=== PATIENT | male | born 1970 | race Caucasian/White ===

== ENCOUNTER 2017-10-26 05:37 | Emergency (ER) | payer MEDICARE, MEDICAID ==
[~2017-10-26] VITALS: Ht 180.3 cm; Wt 72.0 kg
[2017-10-26 07:39] LABS: BASOPHILS % (AUTO) 0.4 % (0-1); EOSINOPHILS # (AUTO) 0.2 X10'3 (0-0.9); EOSINOPHILS % (AUTO) 2.8 % (0-6); HEMATOCRIT 41.5 % (42.0-52.0); HEMOGLOBIN 14.3 g/dl (14.0-17.9); LYMPHOCYTES # (AUTO) 2.3 X10'3 (1.1-4.8); LYMPHOCYTES % (AUTO) 27.5 % (21-51); MEAN CORPUSCULAR HEMOGLOBIN 31.5 PG (27.0-31.0); MEAN CORPUSCULAR HGB CONC 34.3 % (33.0-36.5); MEAN CORPUSCULAR VOLUME 91.8 FL (78-98); MEAN PLATELET VOLUME 8.1 FL (7.4-10.4); MONOCYTES # (AUTO) 0.7 X10'3 (0-0.9); MONOCYTES % (AUTO) 7.9 % (2-12); NEUTROPHILS # (AUTO) 5.1 X10'3 (1.8-7.7); NEUTROPHILS % (AUTO) 61.4 % (42-75); PLATELET COUNT 338 X10'3 (140-440); RED BLOOD COUNT 4.52 X10'6 (4.70-6.10); RED CELL DISTRIBUTION WIDTH 13.2 % (11.5-14.5); WHITE BLOOD COUNT 8.3 X10'3 (4.5-11.0)
[2017-10-26 08:05] LABS: ALANINE AMINOTRANSFERASE 28 U/L (12-78); ALBUMIN 4.3 G/DL (3.4-5.0); ALBUMIN/GLOBULIN RATIO 1.2 (1.1-1.5); ALKALINE PHOSPHATASE 67 IU/L (46-116); ANION GAP 10 (8-16); ASPARTATE AMINO TRANSFERASE 20 U/L (10-37); BILIRUBIN,TOTAL 0.5 MG/DL (0.1-1.0); BLOOD UREA NITROGEN 16 MG/DL (7-18); BUN/CREATININE RATIO 17.4 (5.4-32.0); CALCIUM 9.3 MG/DL (8.5-10.1); CHLORIDE 104 MMOL/L (99-107); CREATININE 0.92 MG/DL (0.60-1.10); ETHANOL < 0.010 GM/DL (0.0-0.010); GLUCOSE 89 MG/DL (70-104); POTASSIUM 4.2 MMOL/L (3.5-5.1); SODIUM 143 MMOL/L (135-145); TOTAL CARBON DIOXIDE 29.2 MMOL/L (24-32); eGFR 89 ML/MIN
[2017-10-26 11:27] LABS: URINE AMPHETAMINE SCREEN NEGATIVE (Neg); URINE BARBITUATE SCREEN NEGATIVE (Neg); URINE BENZODIAZEPINES SCREEN NEGATIVE (Neg); URINE CANNABINOID SCREEN NEGATIVE (Neg); URINE COCAINE SCREEN NEGATIVE (Neg); URINE METHADONE SCREEN NEGATIVE (Neg); URINE OPIATE SCREEN NEGATIVE (Neg); URINE PHENCYCLIDINE SCREEN NEGATIVE (Neg)
[2017-10-26 11:29] VITALS: BP 119/77
[2017-10-27] MEDS ORDERED: NO HOME MEDS (10:43)
== END 2017-10-26 11:25 | disposition home or self-care (01) ==
LOC: ER 05:38
DX: F29 Unspecified psychosis not due to a substance or known physiological condition (principal); Z59.0 Homelessness; Z56.0 Unemployment, unspecified
CPT/HCPCS: 36415; 80053; 80305; 80320; 84443; 85025; 99284

== ENCOUNTER 2017-10-26 10:31 | Inpatient (IN) | payer MEDICARE, MEDICAID ==
[~2017-10-26] VITALS: Ht 177.8 cm; Wt 71.2 kg
[2017-10-26] MEDS ORDERED: magnesium hydroxide 30ml (MOM) UD suspension PO PRN (11:40)
[2017-10-26] MEDS ORDERED: mag hydrox/Alum hydrox/simeth 30ml oral suspension PO PRN (11:40)
[2017-10-26] MEDS ORDERED: acetaminophen 325mg tablet PO PRN ×2 (11:40)
[2017-10-26 11:45] VITALS: BP 102/65
[2017-10-26 19:35] VITALS: BP 108/70
[2017-10-27 07:10] LABS: CHOLESTEROL 172 MG/DL (0-200); HDL CHOLESTEROL 57 MG/DL (35-60); LDL CHOLESTEROL 99 MG/DL (50-100); TRIGLYCERIDES 24 MG/DL (20-135)
[2017-10-27 07:11] LABS: HEMOGLOBIN A1C 5.3 % (4.5-6.2)
[2017-10-27] MEDS ORDERED: LORazepam 1 MG tablet PO PRN (08:35)
[2017-10-27] MEDS ORDERED: PALIPERIDONE 3 MG TAB.ER.24 PO ONE (08:35)
[2017-10-27] MEDS ORDERED: haloperidol 5mg tablet PO PRN (08:35)
[2017-10-27] MEDS ORDERED: benztropine 1mg tablet PO PRN (08:35)
[2017-10-27 08:42] VITALS: BP 101/69
[2017-10-27] MEDS ORDERED: NO HOME MEDS (10:43)
[2017-10-27 19:22] VITALS: BP 97/55
[2017-10-28 07:57] VITALS: BP 102/65
[2017-10-28] MEDS ORDERED: PALIPERIDONE 3 MG TAB.ER.24 PO SCH (08:00)
[2017-10-28 19:00] VITALS: BP 94/61
[2017-10-29] MEDS: PALIPERIDONE 3 MG TAB.ER.24 PO SCH (08:20)
[2017-10-29 08:23] VITALS: BP 109/65
[2017-10-29 19:42] VITALS: BP 96/60
[2017-10-30] MEDS: PALIPERIDONE 3 MG TAB.ER.24 PO SCH (08:29)
[2017-10-30 08:30] VITALS: BP 107/58
[2017-10-30 19:58] VITALS: BP 103/56
[2017-10-31 08:43] VITALS: BP 102/61
[2017-10-31] MEDS: PALIPERIDONE 3 MG TAB.ER.24 PO SCH (16:10)
[2017-11-01] MEDS: PALIPERIDONE 3 MG TAB.ER.24 PO SCH (08:00)
[2017-11-01 19:47] VITALS: BP 107/75
[2017-11-02] MEDS: PALIPERIDONE 3 MG TAB.ER.24 PO SCH (07:47)
[2017-11-02 09:05] VITALS: BP 116/90
[2017-11-02] MEDS ORDERED: PALI3TAB5 PO (16:53)
[2017-11-02 19:34] VITALS: BP 110/69
[2017-11-03 08:00] VITALS: BP 104/63
[2017-11-03] MEDS: PALIPERIDONE 3 MG TAB.ER.24 PO SCH (08:16)
== END 2017-11-03 09:50 | disposition home or self-care (01) | DRG 885 ==
LOC: ADULT MH 10:31
PROVIDERS: ADMIT Psychiatry & Neurology Psychiatry; ATTEND Psychiatry & Neurology Psychiatry
DX: F29 Unspecified psychosis not due to a substance or known physiological condition (principal); F20.0 Paranoid schizophrenia; F17.290 Nicotine dependence, other tobacco product, uncomplicated; Z59.0 Homelessness; F19.10 Other psychoactive substance abuse, uncomplicated; Z91.19 Patient's noncompliance with other medical treatment and regimen; Z91.010 Allergy to peanuts; Z80.8 Family history of malignant neoplasm of other organs or systems
CPT/HCPCS: 36415; 80061; 83036; 87070

== ENCOUNTER 2018-07-09 18:07 | Emergency (ER) | payer MEDICARE, MEDICAID ==
[~2018-07-09] VITALS: Ht 177.8 cm; Wt 74.0 kg
[~2018-07-09 18:07] MED LIST: OLAN10TA3 PO; PALI3TAB5 PO
--- NOTE | 2018-07-09 18:45 | NUR ---
The patient is a 48 year old male who ambulated back to bed 23 from the triage area. He presented as clean and appropriately dressed for the weather. Staff requested that he change in to hospital scrubs but he was very disorganized and insisted that the scrubs provided were covered in germs. During the assessment he appeared distracted by internal stimuli and is a very poor historian. He makes contradictory statements. Initially stating he was not suicidal then stating "Maybe a little bit. Yes I definately am" He did state he was hearing voices that "Help quide me" Throughout the assessment he was laying on the bed with his eyes closed and several times had to be asked repeatedly the same question before he would answer. He did accurately state the month and the year. He is homeless and from prior records travels around [place] and has had multible pscyhiatric admissions. His last admit to [facility] in October of the last year. 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 He denies being on medications currently. His urine drug screen was negative. He has no family in the [facility] and states all is family is in [facility]
--- NOTE | 2018-07-09 20:30 | NUR ---
Telepsych referral made.
[2018-07-09 21:31] LABS: URINE AMPHETAMINE SCREEN NEGATIVE (Neg); URINE BARBITUATE SCREEN NEGATIVE (Neg); URINE BENZODIAZEPINES SCREEN NEGATIVE (Neg); URINE CANNABINOID SCREEN NEGATIVE (Neg); URINE COCAINE SCREEN NEGATIVE (Neg); URINE METHADONE SCREEN NEGATIVE (Neg); URINE OPIATE SCREEN NEGATIVE (Neg); URINE PHENCYCLIDINE SCREEN NEGATIVE (Neg)
--- NOTE | 2018-07-09 21:59 | NUR ---
The patient is resting on his bed. He was up to use the bathroom and was requesting a pair of scissors so he could cut areas of matter hair but was told he would not be allowed to do that at this time. He is aware that he will be interviewed by the telepyschiatrist
--- NOTE | 2018-07-09 22:29 | NUR ---
Report to telepsychiatrist
[2018-07-09] MEDS ORDERED: OLANZapine 2.5MG tablet PO ONE (23:40)
[2018-07-09] MEDS: olanzapine 10mg tablet PO ONE ×2 (23:40→23:57)
--- NOTE | 2018-07-09 23:48 | NUR ---
The patient is uncooperative with staff requests. He presents as paranoid and disorganized. He was uncooperative with lab draw. He is changing into green scubs currently and then we will try medications. Lab will come back in one hour to try to draw labs
[2018-07-10] MEDS ORDERED: OLANZapine **IM** 10 mg inj. IM ONE (00:35)
[2018-07-10 02:00] LABS: BASOPHILS % (AUTO) 0.6 % (0-1); EOSINOPHILS # (AUTO) 0.1 X10'3 (0-0.9); EOSINOPHILS % (AUTO) 1.8 % (0-6); HEMATOCRIT 34.6 % (42.0-52.0); HEMOGLOBIN 11.8 g/dl (14.0-17.9); LYMPHOCYTES # (AUTO) 1.8 X10'3 (1.1-4.8); LYMPHOCYTES % (AUTO) 29.4 % (21-51); MEAN CORPUSCULAR HEMOGLOBIN 31.6 PG (27.0-31.0); MEAN PLATELET VOLUME 8.4 FL (7.4-10.4); MONOCYTES # (AUTO) 0.7 X10'3 (0-0.9); MONOCYTES % (AUTO) 11.3 % (2-12); NEUTROPHILS # (AUTO) 3.5 X10'3 (1.8-7.7); NEUTROPHILS % (AUTO) 56.9 % (42-75); PLATELET COUNT 259 X10'3 (140-440); RED BLOOD COUNT 3.72 X10'6 (4.70-6.10); RED CELL DISTRIBUTION WIDTH 12.1 % (11.5-14.5); WHITE BLOOD COUNT 6.1 X10'3 (4.5-11.0)
[2018-07-10 02:04] LABS: ALANINE AMINOTRANSFERASE 24 U/L (12-78); ALBUMIN 3.1 G/DL (3.4-5.0); ALBUMIN/GLOBULIN RATIO 0.9 (1.1-1.5); ALKALINE PHOSPHATASE 63 IU/L (46-116); ANION GAP 8 (8-16); ASPARTATE AMINO TRANSFERASE 18 U/L (10-37); BILIRUBIN,TOTAL 0.2 MG/DL (0.1-1.0); BLOOD UREA NITROGEN 17 MG/DL (7-18); BUN/CREATININE RATIO 16.8 (5.4-32.0); CALCIUM 8.5 MG/DL (8.5-10.1); CHLORIDE 104 MMOL/L (99-107); CREATININE 1.01 MG/DL (0.60-1.10); ETHANOL < 0.010 GM/DL (0.0-0.010); GLUCOSE 98 MG/DL (70-104); POTASSIUM 3.8 MMOL/L (3.5-5.1); SODIUM 141 MMOL/L (135-145); TOTAL CARBON DIOXIDE 29.3 MMOL/L (24-32); TOTAL PROTEIN 6.4 G/DL (6.4-8.2); eGFR 80 ML/MIN
--- NOTE | 2018-07-10 02:58 | NUR ---
The patient appears to be asleep at this time
--- NOTE | 2018-07-10 04:59 | NUR ---
The patient is resting on his bed
--- NOTE | 2018-07-10 06:37 | NUR ---
Received SBAR report from NOC shift, assumed care of patient.
--- NOTE | 2018-07-10 13:02 | NUR ---
Woke patient up for lunch and asked if he wanted to eat, he states "I don't know if I will eat it".
--- NOTE | 2018-07-10 15:48 | NUR ---
Patient ambulated to the restroom independently. Tolerated well. Currently patient is up making his bed and eating his lunch.
--- NOTE | 2018-07-10 19:01 | NUR ---
The patient is sitting up on his bed. He is disheveled with his hair matted in the back of his head. He gives very poor eye contact. He is a very poor historian. He only answers periodically with one or two word replies. At times he shuts down and doesn't reply at all. He could not state what town or place he was at. He could not state why he was here. He is unable to verbalize a plan for self care if he were to leave the hospital. He appears very preoccupied by internal stimuli.
[2018-07-10] MEDS ORDERED: olanzapine 10mg tablet PO SCH (21:00)
--- NOTE | 2018-07-10 21:44 | NUR ---
The patient appears to be asleep on his bed. He was evaluated by [facility] and will be put on a hold for gravely disabled. He did eat his dinner. He is quiet and lays on his bed with his eyes closed. He makes no requests of staff. He was given hyiene supplies and encouraged to brush his hair and brush his teeth.
--- NOTE | 2018-07-11 00:45 | NUR ---
The patient appears to be asleep at this time
--- NOTE | 2018-07-11 02:56 | NUR ---
The patient currently appears to be asleep
--- NOTE | 2018-07-11 05:54 | NUR ---
The patient appears to be asleep at this time. He has appeared to have slept well during the night
--- NOTE | 2018-07-11 09:37 | NUR ---
PT IS IN BED SLEEPING ON HIS RIGHT SIDE, JUST TURNED OVER, SPONTAINEOUS REGULAR BREATHING, NO S/S OF DISTRESS
--- NOTE | 2018-07-11 10:13 | NUR ---
KAVYA SCHULTZ CALLED REQUESTING INFO ON PT. PT STATED HE HEAD LEFT SIDE PAIN WHEN HE WAS AWOKEN FOR VS EARLY THIS AM. THEODORA SCHULTZ REQUESTING AN EKG PRIOR TO ACCEPTING PT WELL RECENT VS. PT AWOKEN AND HE DENIES ANY PAIN. EATING BREAKFAST AT THIS TIME.
[2018-07-11 10:32] VITALS: BP 112/70
--- NOTE | 2018-07-11 10:45 | NUR ---
SPOKE WITH KAVYA CORTEZ GAVE HER RECENT VS AND FAXED A COPY OF EKG. DR. WATTERS WILL ACCEPT PT TO [facility] IN [place].
== END 2018-07-11 14:15 ==
LOC: ER 18:07
DX: F22 Delusional disorders (principal); F20.9 Schizophrenia, unspecified; Z59.0 Homelessness; Z56.0 Unemployment, unspecified; Z91.010 Allergy to peanuts; Z79.899 Other long term (current) drug therapy
CPT/HCPCS: 36415; 80053; 80305; 80320; 85025; 93005; 96372; 99285; J3490